=== PATIENT | female | born 1950 | race Caucasian/White ===

== ENCOUNTER → 2017-11-23 13:13 | Outpatient (CLI) | payer MEDICARE, MEDICAID, SELFPAY ==
--- NOTE | 2017-11-23 13:45 | RAD_ITS ---
STUDY: X-RAY - LUMBAR SPINE REASON FOR EXAM: Female, 67 years old. Back pain TECHNIQUE: 2 view(s) of the lumbar spine were obtained. COMPARISON: None FINDINGS: Normal lumbar lordosis. There is a mild scoliosis. There is a normal alignment of the vertebrae. Normal vertebral bodies. Minimal spurring at the Endplates. Normal disc space heights. The soft tissue structures are unremarkable. RAD/Lumbar Spine 2 or 3 Views IMPRESSION: Minimal scoliosis and degenerative changes of the lumbar spine. Electronically Signed: Buddy Wynn DO at 22:28 EST Tel [phone], Service support ,
--- NOTE | 2017-11-23 13:45 | RAD_ITS ---
STUDY: X-RAY - CERVICAL SPINE REASON FOR EXAM: Female, 67 years old. Neck pain TECHNIQUE: 2 view(s) of the cervical spine were obtained. COMPARISON: None FINDINGS: Normal anterior atlantoaxial articulation. Normal odontoid process. Normal cervical lordosis. Normal vertebral bodies. Mild degenerative spurring at the C4-C6 endplates. Slightly narrowed C4-5 through C6-7 disc space heights. The soft tissue structures are unremarkable. RAD/Cerv Spine 2 or 3 Views IMPRESSION: Mild degenerative changes of the visualized cervical spine. Electronically Signed: Buddy Wynn DO at 22:40 EST Tel [phone], Service support ,
[2017-11-23 15:15] LABS: Amphetamine Urine VISTA NEGATIVE (<1000 ng/mL); Barbiturate Urine VISTA NEGATIVE (< 200 ng/mL); Benzodiazepine Urine VISTA NEGATIVE (< 200 ng/mL); Cocaine Urine VISTA NEGATIVE (< 300 ng/mL); Ecstacy Urine VISTA NEGATIVE (< 500 ng/mL); Methadone Urine VISTA NEGATIVE (< 300 ng/mL); PCP Urine VISTA NEGATIVE (< 25 ng/mL); THC Urine VISTA NEGATIVE (< 50 ng/mL); Vista UDS pH Range 5
== END ==
PROVIDERS: Family Provider Internal Medicine; PCP Internal Medicine; Visit Provider Anesthesiology Pain Medicine
DX: F11.20 Opioid dependence, uncomplicated (principal); M54.2 Cervicalgia; M54.5 Low back pain
CPT/HCPCS: 72040; 72100; 80307

== ENCOUNTER → 2018-11-15 16:22 | Outpatient (CLI) | payer BC, MEDICARE, SELFPAY ==
--- NOTE | 2018-11-15 16:25 | RAD_ITS ---
STUDY: X-RAY - LUMBAR SPINE REASON FOR EXAM: Female, 68 years old. Low back pain. TECHNIQUE: 3 view(s) of the lumbar spine were obtained. COMPARISON: 11/23/2017. FINDINGS: Normal lumbar lordosis. Mild levoscoliosis at the thoracolumbar junction. There is a normal alignment of the vertebrae. Normal vertebral bodies and endplates. Moderate L4-L5 disc space narrowing with endplate sclerosis. The remaining lumbar disc space heights are normal. Atherosclerotic calcifications along the abdominal aorta. RAD/Lumbar Spine 2 or 3 Views IMPRESSION: 1. Mild levoscoliosis at the thoracolumbar junction. 2. Moderate L4-L5 disc space height narrowing with endplate sclerosis. 3. No acute osseous abnormality of the lumbar spine. 4. No interval change when compared to 11/23/2017. Electronically Signed: Avtar Castillo MD at 14:23 EST , Service support ,
--- NOTE | 2018-11-15 16:30 | RAD_ITS ---
STUDY: X-RAY - CERVICAL SPINE REASON FOR EXAM: Female, 68 years old. Neck pain for many years. Had a fall in August that increased pain. TECHNIQUE: 3 view(s) of the cervical spine were obtained. COMPARISON: 11/23/2017. FINDINGS: Normal anterior atlantoaxial articulation. Normal odontoid process. Normal cervical lordosis. Normal vertebral bodies and endplates. Moderate disc space height narrowing at C4-C5, C5-C6 and C6-C7 disc space levels. Minimal degenerative retrolisthesis of C4 on C5. The soft tissue structures are unremarkable. RAD/Cerv Spine 2 or 3 Views IMPRESSION: 1. Moderate disc space height narrowing at C4-C5, C5-C6 and C6-7 disc space levels. 2. Minimal degenerative retrolisthesis of C4 on C5. 3. No interval change when compared to 11/23/2017. Electronically Signed: Avtar Castillo MD at 14:31 EST , Service support ,
== END ==
PROVIDERS: Family Provider Internal Medicine; PCP Internal Medicine; Referring Provider Anesthesiology Pain Medicine; Visit Provider Anesthesiology Pain Medicine
DX: M54.2 Cervicalgia (principal); M79.606 Pain in leg, unspecified
CPT/HCPCS: 72040; 72100

== ENCOUNTER → 2019-01-13 11:29 | Outpatient (CLI) | payer MEDICARE, SELFPAY ==
[2019-01-13 14:25] LABS: Amphetamine Urine VISTA NEGATIVE (<1000 ng/mL); Barbiturate Urine VISTA NEGATIVE (< 200 ng/mL); Benzodiazepine Urine VISTA NEGATIVE (< 200 ng/mL); Cocaine Urine VISTA NEGATIVE (< 300 ng/mL); Ecstacy Urine VISTA NEGATIVE (< 500 ng/mL); Methadone Urine VISTA NEGATIVE (< 300 ng/mL); PCP Urine VISTA NEGATIVE (< 25 ng/mL); THC Urine VISTA NEGATIVE (< 50 ng/mL); Vista UDS pH Range 5
== END ==
PROVIDERS: Family Provider Internal Medicine; PCP Internal Medicine; Referring Provider Anesthesiology Pain Medicine; Visit Provider Anesthesiology Pain Medicine
DX: F11.20 Opioid dependence, uncomplicated (principal)
CPT/HCPCS: 80307

== ENCOUNTER → 2019-01-31 | Outpatient (CLI) | payer MEDICARE, MEDICAID, SELFPAY ==
--- NOTE | 2019-01-31 13:11 | MRI_ITS ---
STUDY: MRI LUMBAR SPINE WITHOUT CONTRAST REASON FOR EXAM: Female, 68 years old. Low back pain TECHNIQUE: Standardized fat and water weighted pulse sequences were obtained in the sagittal and axial planes. COMPARISON: Lumbar radiographs 11/15/2018 FINDINGS: T12-L1: Normal endplates. Normal disc height, hydration and morphology. Normal bilateral facet joints. Normal central canal and bilateral lateral recesses. Normal bilateral intervertebral neural foramina. Normal lumbar lordosis. There is levoscoliosis of the lower thoracic and upper lumbar spine. Normal conus medullaris that terminates at the L1 level. L1-2: Normal endplates. There is mild annular disc bulge and mild bilateral facet arthrosis. Mild ligamentum flavum hypertrophy.. Trace central canal narrowing. Normal bilateral lateral recesses. Normal bilateral intervertebral neural foramina. L2-3: Normal endplates. There is mild annular disc bulge. Mild bilateral facet arthrosis. Normal central canal and bilateral lateral recesses. Normal bilateral intervertebral neural foramina. L3-4: Normal endplates. Mild annular disc bulge and ligamentum flavum hypertrophy. Mild bilateral facet arthrosis. Mild central canal narrowing. No neural foraminal narrowing. L4-5: There are Modic changes of the endplates. Mild annular disc bulge, ligamentum flavum hypertrophy and moderate bilateral facet arthrosis. No central canal narrowing. Moderate left foraminal narrowing. L5-S1: Normal endplates. Normal disc height, hydration and morphology. Mild bilateral facet arthrosis. Normal central canal and bilateral lateral recesses. Mild right foraminal narrowing. Normal visualized sacral ala. Normal visualized paraspinous soft tissue structures. There is a stone at the gallbladder neck. MRI/Spine Lumbar (Routine) IMPRESSION: Mild/moderate multilevel degenerative disc disease as described above. Levoscoliosis of the lower thoracic and upper lumbar spine. Electronically Signed: Анна Morocho, at 14:47 EDT Tel , Service support ,
== END | disposition home or self-care (01) ==
LOC: MRI 13:04
PROVIDERS: Family Provider Internal Medicine; PCP Internal Medicine; Referring Provider Anesthesiology Pain Medicine; Visit Provider Anesthesiology Pain Medicine
DX: M54.9 Dorsalgia, unspecified (principal); M79.606 Pain in leg, unspecified
CPT/HCPCS: 72148

== ENCOUNTER → 2019-04-04 | Outpatient (CLI) | payer MEDICARE, MEDICAID, SELFPAY ==
--- NOTE | 2019-04-04 13:20 | RAD_ITS ---
STUDY: X-RAY - THORACIC SPINE REASON FOR EXAM: Female, 68 years old. Pain TECHNIQUE: 3 view(s) of the thoracic spine were obtained. COMPARISON: None. FINDINGS: There is no evidence of fracture or dislocation in the thoracic spine. The vertebral body heights are well-maintained. There are mild multilevel degenerative changes. RAD/Thoracic Spine 3 Views IMPRESSION: No fracture or dislocation in the thoracic spine. Mild degenerative change. Electronically Signed: Prieto Zheng, at 14:02 EDT Tel , Service support ,
== END | disposition home or self-care (01) ==
LOC: RAD 13:15
PROVIDERS: Family Provider Internal Medicine; PCP Internal Medicine; Referring Provider Anesthesiology Pain Medicine; Visit Provider Anesthesiology Pain Medicine
DX: M54.6 Pain in thoracic spine (principal)
CPT/HCPCS: 72072

== ENCOUNTER → 2019-08-23 | Outpatient (CLI) | payer MEDICARE, MEDICAID, SELFPAY ==
--- NOTE | 2019-08-23 13:35 | RAD_ITS ---
STUDY: X-RAY - LEFT SHOULDER REASON FOR EXAM: Female, 68 years old. Fall 4 months ago TECHNIQUE: 4 view(s) of the shoulder. COMPARISON: None. FINDINGS: There is a subacute nonunited fracture through the proximal left humeral neck with evidence of associated sclerosis of the fracture site. The remainder of the osseous structures are intact. There is no dislocation at the shoulder joint. The Y-view is limited by patient positioning. The visualized lungs are clear. RAD/Shoulder min 2 Views IMPRESSION: Subacute nonunited left proximal humeral fracture. Electronically Signed: Rakesh Marcos, at 14:24 EST Tel , Service support ,
== END | disposition home or self-care (01) ==
LOC: RAD 13:33
PROVIDERS: Family Provider Internal Medicine; PCP Internal Medicine; Referring Provider Anesthesiology Pain Medicine; Visit Provider Anesthesiology Pain Medicine
DX: M25.512 Pain in left shoulder (principal)
CPT/HCPCS: 73030

== ENCOUNTER → 2019-09-20 13:38 | Outpatient (CLI) | payer MEDICARE, MEDICAID, SELFPAY ==
[2019-09-20 15:22] LABS: Amphetamine Urine VISTA NEGATIVE (<1000 ng/mL); Barbiturate Urine VISTA NEGATIVE (< 200 ng/mL); Benzodiazepine Urine VISTA NEGATIVE (< 200 ng/mL); Cocaine Urine VISTA NEGATIVE (< 300 ng/mL); Ecstacy Urine VISTA NEGATIVE (< 500 ng/mL); Methadone Urine VISTA NEGATIVE (< 300 ng/mL); PCP Urine VISTA NEGATIVE (< 25 ng/mL); THC Urine VISTA NEGATIVE (< 50 ng/mL); Vista UDS pH Range 6
== END ==
PROVIDERS: Family Provider Internal Medicine; PCP Internal Medicine; Referring Provider Anesthesiology Pain Medicine; Visit Provider Anesthesiology Pain Medicine
DX: F11.20 Opioid dependence, uncomplicated (principal)
CPT/HCPCS: 80307

== ENCOUNTER → 2020-04-11 10:26 | Outpatient (CLI) | payer MEDICARE, MEDICAID, SELFPAY ==
[2020-04-11 11:58] LABS: Amphetamine Urine VISTA NEGATIVE (<1000 ng/mL); Barbiturate Urine VISTA NEGATIVE (< 200 ng/mL); Benzodiazepine Urine VISTA NEGATIVE (< 200 ng/mL); Cocaine Urine VISTA NEGATIVE (< 300 ng/mL); Ecstacy Urine VISTA NEGATIVE (< 500 ng/mL); Methadone Urine VISTA NEGATIVE (< 300 ng/mL); PCP Urine VISTA NEGATIVE (< 25 ng/mL); THC Urine VISTA NEGATIVE (< 50 ng/mL); Vista UDS pH Range 5
== END ==
PROVIDERS: PCP Family Medicine; Referring Provider Anesthesiology Pain Medicine; Visit Provider Anesthesiology Pain Medicine
DX: F11.20 Opioid dependence, uncomplicated (principal)
CPT/HCPCS: 80307